=== PATIENT | female | born 1985 | race Caucasian/White ===

== ENCOUNTER → 2016-08-24 | Outpatient (CLI) | payer BC ==
[~2016-08-24] MED LIST: LOPE2CAP PO; MAG355OR15 PO; ONDA4TAB35 PO
== END | disposition home or self-care (01) ==
LOC: LAB 13:53
PROVIDERS: ATTEND Obstetrics & Gynecology
DX: Z32.00 Encounter for pregnancy test, result unknown (principal)

== ENCOUNTER → 2016-10-18 | Outpatient (CLI) | payer BC | END | disposition home or self-care (01) | LOC: LAB 11:19 | PROVIDERS: ATTEND Obstetrics & Gynecology | DX: O24.419 Gestational diabetes mellitus in pregnancy, unspecified control (principal); Z3A.00 Weeks of gestation of pregnancy not specified ==

== ENCOUNTER → 2016-10-19 | Outpatient (CLI) | payer BC ==
[2016-10-19 10:37] LABS: BASOPHILS % 0.3 % (0.0-2.0); EOSINOPHILS # 0.2 10^3/ul (0.0-0.5); EOSINOPHILS % 2.6 % (0.0-7.0); HEMATOCRIT 30.9 % (37.0-47.0); LYMPHOCYTES # 1.1 10^3/ul (0.8-2.9); LYMPHOCYTES % 16.3 % (15.0-51.0); MEAN CORPUSCULAR HEMOGLOBIN 32.3 pg (29.0-33.0); MEAN CORPUSCULAR HGB CONC 35.6 g/dl (32.0-37.0); MEAN CORPUSCULAR VOLUME 90.6 fl (82.0-101.0); MEAN PLATELET VOLUME 8.4 fl (7.4-10.4); MONOCYTE # 0.4 10^3/ul (0.3-0.9); MONOCYTES % 5.2 % (0.0-11.0); NEUTROPHIL # 5.1 10^3/ul (1.6-7.5); NEUTROPHILS % 74.6 % (39.0-77.0); PLATELET COUNT 161 10^3/UL (140-415); RED BLOOD COUNT 3.41 10^6/ul (4.20-5.40); RED CELL DISTRIBUTION WIDTH 13.2 % (11.5-14.5); WHITE BLOOD COUNT 6.9 10^3/ul (4.8-10.8)
== END | disposition home or self-care (01) ==
LOC: LAB 07:50
PROVIDERS: ATTEND Obstetrics & Gynecology
DX: O24.419 Gestational diabetes mellitus in pregnancy, unspecified control (principal); Z3A.00 Weeks of gestation of pregnancy not specified
CPT/HCPCS: 82950; 85025

== ENCOUNTER → 2016-10-26 | Outpatient (CLI) | payer BC | END | disposition home or self-care (01) | LOC: LAB 07:10 | PROVIDERS: ATTEND Obstetrics & Gynecology | DX: O24.410 Gestational diabetes mellitus in pregnancy, diet controlled (principal) | CPT/HCPCS: 82951 ==

== ENCOUNTER 2016-12-29 18:27 | Outpatient (CLI) | payer BC ==
[~2016-12-29] VITALS: Ht 167.6 cm; Wt 81.9 kg
[2016-12-29] MEDS ORDERED: DOCO200C5 PO (18:39)
[2016-12-29] MEDS ORDERED: ALBU18HF INHALATION (18:40)
[2016-12-29] MEDS ORDERED: QVAR INH (18:42)
[2016-12-29] MEDS ORDERED: ACET500C5 PO (18:42)
[2016-12-29] MEDS ORDERED: RANI150T9 PO (18:43)
[2016-12-29 18:44] VITALS: BP 132/78; PULSE 97; RESP 18
--- NOTE | 2016-12-29 19:42 | RADRPT ---
PROCEDURE: US OB biophysical profile. CLINICAL INDICATION: decreased movements, spotting TECHNIQUE: Multiple sonographic images of the pelvis were obtained. The images were reviewed on a PACS workstation. COMPARISON: No prior studies are available for comparison. FINDINGS: There is a single viable intrauterine gestation. Cardiac activity is present with 146 beats per min [place]. There is a breech presentation. The placenta is fundal. There is no evidence of placental abruption. There is a normal amount of amniotic fluid with an [place] = 9.2 cm. Biophysical profile: movement 2/2 tone 2/2. breathing 2/2 [place] 2/2 Total 10/30 RPTAT: AA . IMPRESSION: Normal biophysical profile. . .Ruben Kitchen MD, Date Time Electronically viewed and signed by .Ruben Kitchen MD, MD on 12/29/2016 19:41 .S/
--- NOTE | 2016-12-29 20:27 | TRIAGE ---
OB Triage Datetime Report Generated by CPN: 12/29/2016 20:27 Datetime: 12/29/2016 19:55 Labor Evaluation Frequency: NONE Monitor Mode: External Resting Tone [place]: Relaxed Heart Rate FHR Baseline Rate: 135 Monitor Mode: External US Variability: Moderate 6-25 bpm Accelerations: 15X15 Decelerations: None Category: Category I Datetime: 12/29/2016 19:31 Pain Assessment Pain Scale: 0 Pain Presence: None/Denies Pain Type: N/A Pain Goal: 4 Datetime: 12/29/2016 19:16 Labor Evaluation Frequency: 0 Monitor Mode: External Pattern: Normal: <= 5 Contractions in 10 Minutes Resting Tone [place]: Relaxed Heart Rate FHR Baseline Rate: 135 Monitor Mode: External US FHR Baseline Changes: No Baseline Change Variability: Moderate 6-25 bpm Accelerations: 15X15 Decelerations: None Datetime: 12/29/2016 19:01 Vaginal Exam Dilatation (cms): 0.0 Effacement (%): 0 Station: -3 Exam By: CK Datetime: 12/29/2016 18:59 Nitrazine: Negative Datetime: 12/29/2016 18:46 Time of Arrival: 12/29/2016 18:20 EGA: 38.4 Arrived By: Ambulatory Arrived From: Home Chief Complaint: AT 1730, HAD 3 CTX Q2MIN, THEN SMALL AMOUNT OF BROWN, BLOODY DISCHARGE (SOAKED ON E PANTY LINER) Movement: Present Contractions: Denies/Absent Rupture of Membranes: Denies Vaginal Bleeding: Small Vaginal Discharge: Present Recent Sexual Intercouse: Denies Abdominal Trauma: Not Applicable Patient Complaints: Contractions Time Provider Notified: 12/29/2016 18:50 Provider Notified: DR. DAN Initial Plan: EFM x2, SVE, NITRAZINE, ROM+, BPP Datetime: 12/29/2016 18:28 Stage of : OB Triage
--- NOTE | 2016-12-30 07:03 | QN ---
Documentation Comment iup 38 weeks with discharge vss exam wnl nst reactdive a/p iup 38 weeks false labor dc dana point WAI DEMARCO MD Dec 30, 2016 07:03
== END 2016-12-29 20:05 | disposition home or self-care (01) ==
LOC: OBT 18:27 → L-D 18:28 → OBT 20:05
PROVIDERS: ATTEND Obstetrics & Gynecology
DX: O47.1 False labor at or after 37 completed weeks of gestation (principal); Z3A.38 38 weeks gestation of pregnancy
CPT/HCPCS: 76818; 84112

== ENCOUNTER 2017-01-01 10:13 | Inpatient (IN) | payer BC ==
[~2017-01-01] VITALS: Ht 167.6 cm; Wt 80.0 kg
[~2017-01-01 10:13] MED LIST changes: +ACET500C5 PO; +ALBU18HF INHALATION; +DOCO200C5 PO; -LOPE2CAP PO; -MAG355OR15 PO; -ONDA4TAB35 PO; +QVAR INH; +RANI150T9 PO
[2017-01-01] MEDS ORDERED: LACTATED RINGER'S 1,000 ML IV SCH (10:19)
[2017-01-01 10:25] VITALS: Ht 167.6 cm; Wt 80.0 kg
[2017-01-01] MEDS ORDERED: METHYLERGONOVINE 0.2 MG INJ IM PRN ×2 (10:30→14:00)
[2017-01-01] MEDS ORDERED: OXYTOCIN 30 UNITS/LR 500 ML IV PRN ×2 (10:30→14:00)
[2017-01-01] MEDS ORDERED: MISOPROSTOL 200 MCG TAB PR PRN ×2 (10:30→14:00)
[2017-01-01] MEDS ORDERED: OXYTOCIN 30 UNITS/LR 500 ML IV SCH (10:30)
[2017-01-01] MEDS ORDERED: CEFAZOLIN 2 GM/50 ML (PMX) 50 ML IV SCH (10:30)
[2017-01-01] MEDS ORDERED: CARBOPROST 250 MCG INJ IM PRN ×2 (10:30→14:00)
--- NOTE | 2017-01-01 11:20 | RADRPT ---
PROCEDURE: Limited OB ultrasound CLINICAL INDICATION: position TECHNIQUE: Sonographic evaluation to assess the position was performed. Transabdominal imag ing of the gravid uterus was performed. COMPARISON: OB ultrasound dated 12/29/2016 FINDINGS: There is a single live intrauterine with a heart rate of 143 bpm. position is breech. The placenta is posterior. IMPRESSION: Breech presentation. RPTAT: HH .Alisha Ch MD, MD Date Time Electronically viewed and signed by .Alisha Ch MD, on 01/01/2017 11:19 .G/
[2017-01-01 11:25] LABS: BASOPHILS % 0.2 % (0.0-2.0); EOSINOPHILS % 0.4 % (0.0-7.0); HEMATOCRIT 32.9 % (37.0-47.0); HEMOGLOBIN 11.6 g/dl (12.0-16.0); LYMPHOCYTES # 1.4 10^3/ul (0.8-2.9); LYMPHOCYTES % 15.2 % (15.0-51.0); MEAN CORPUSCULAR HEMOGLOBIN 32.4 pg (29.0-33.0); MEAN CORPUSCULAR HGB CONC 35.3 g/dl (32.0-37.0); MEAN CORPUSCULAR VOLUME 91.9 fl (82.0-101.0); MEAN PLATELET VOLUME 9.3 fl (7.4-10.4); MONOCYTE # 0.6 10^3/ul (0.3-0.9); MONOCYTES % 6.8 % (0.0-11.0); NEUTROPHIL # 6.9 10^3/ul (1.6-7.5); NEUTROPHILS % 75.5 % (39.0-77.0); PLATELET COUNT 172 10^3/UL (140-415); RED BLOOD COUNT 3.58 10^6/ul (4.20-5.40); RED CELL DISTRIBUTION WIDTH 13.7 % (11.5-14.5); WHITE BLOOD COUNT 9.2 10^3/ul (4.8-10.8)
[2017-01-01 11:42] LABS: INR 0.94; PROTIME 12.6 Sec (12.2-14.2)
[2017-01-01 11:43] LABS: PARTIAL THROMBOPLASTIN TIME 29.1 Sec (25.0-35.0)
[2017-01-01] MEDS ORDERED: PHENYLephrine (100 MCG/ML) 5ML SYG ONE ×2 (11:58→13:04)
[2017-01-01] MEDS ORDERED: ONDANSETRON 4 MG INJ ONE (11:58)
[2017-01-01] MEDS ORDERED: morphine SULFATE/PF (10 MG/10 ML) INJ ONE (11:58)
[2017-01-01] MEDS ORDERED: CITRIC ACID/NA CITRATE 30 ML CUP ONE (11:58)
[2017-01-01] MEDS ORDERED: FENTAnyl 50 MCG/ML VIAL ONE (11:58)
[2017-01-01] MEDS ORDERED: OXYTOCIN 10 UNIT INJ ONE (11:59)
[2017-01-01] MEDS ORDERED: METOCLOPRAMIDE 10 MG INJ ONE (11:59)
[2017-01-01] MEDS ORDERED: DEXAMETHASONE 4 MG/ML 1 ML INJ ONE (12:38)
[2017-01-01] MEDS ORDERED: ALBUTEROL 0.083% (NEB) 2.5 MG/3 ML AMP HHN PRN (13:00)
[2017-01-01] MEDS ORDERED: HYDROmorphONE (0.2 MG/ML) 10ML SYG IV PRN ×3 (13:00)
[2017-01-01] MEDS ORDERED: hydrALAzine 20 MG INJ IV PRN (13:00)
[2017-01-01] MEDS ORDERED: EPHEDrine SULFATE 50 MG/5 ML SYG IV PRN (13:00)
[2017-01-01] MEDS ORDERED: morphine 2 MG INJ IV PRN (13:00)
[2017-01-01] MEDS ORDERED: NALBUPHINE HCL (10 MG/1 ML) INJ IV PRN (13:00)
[2017-01-01] MEDS ORDERED: NALOXONE (0.4 MG/ML) INJ IV PRN (13:00)
[2017-01-01] MEDS ORDERED: OXYCODONE/ACETAMINOPHEN (5/325) TAB PO PRN ×2 (13:00)
[2017-01-01] MEDS ORDERED: MEPERIDINE 25 MG INJ IV PRN (13:00)
[2017-01-01] MEDS ORDERED: ONDANSETRON 4 MG INJ IV PRN ×2 (13:00)
[2017-01-01] MEDS ORDERED: FENTAnyl 50 MCG/ML VIAL IV PRN ×3 (13:00)
[2017-01-01] MEDS ORDERED: ZOLPIDEM 5 MG TAB PO PRN (13:00)
[2017-01-01] MEDS ORDERED: LABETALOL HCL 20MG INJ IV PRN (13:00)
[2017-01-01] MEDS ORDERED: IPRATROPIUM (NEB) 0.5 MG/2.5 ML AMP HHN PRN (13:00)
[2017-01-01] MEDS ORDERED: DIPHENHYDRAMINE 50 MG INJ IV PRN ×2 (13:00)
[2017-01-01] MEDS ORDERED: morphine 4 MG/ML VIAL IV PRN (13:00)
[2017-01-01] MEDS ORDERED: TRIMETHOBENZAMIDE 100 MG/ML VIAL IM PRN ×2 (13:00)
--- NOTE | 2017-01-01 13:48 | OPR ---
Operative Report Planned Procedure Procedure date Jan 01, 2017 Procedure(s) Primary section. Performed by see signature line Assisting provider: RICHARD DUMONT MD Anesthesiologist: Norm Bolanos M.D. Pre-procedure diagnosis IUP at 39 weeks. Breech. Anesthesia Type: spinal Procedure Description Under satisfactory spinal anesthesia, the patient was prepped and draped and placed in a supine position, tilted to the left. Pfannenstiel incision was made , carried through the subcutaneous tissue. Bleeders brought under control with electrocautery. Fascia incised to the length of the incision. Rectus muscles from the fascia, divided midline. Peritoneum exposed, entered through a transverse incision. Transverse incision was made in the lower segment of the uterus. Amniotic sac ruptured. Clear amniotic fluid noted. Buttocks were delivered first until the legs could be delivered. The baby was then delivered to the shoulders and the arms were delivered. The head was delivered with a finger in the baby's mouth and with fundal pressure to keep the head flexed. The mouth and nares were bulb suctioned. The cord was doubly clamped and cut. The baby was brought to the warmer and the team for immediate attention. The placenta was delivered manually intact. Uterine cavity was cleaned with wet sponge and drainage established. Uterus closed in 2 layers using #1 chromic in continuous fashion. Peritoneal cavity irrigated with warm saline. Sponge, needle and instrument count reported to be correct. Abdominal peritoneum closed with 2-0 Chromic continuously. Rectus muscle approximated with the same suture. Fascia closed with 0-Vicryl. The subcutaneous tissue was irrigated and closed with 2-0 Chromic and skin was closed with 3-0 Monocryl in a subcuticular stitch. Steristrips with Mastosol were placed. Estimated blood loss 600 mL. Urine was clear. Post-Procedure Post-procedure diagnosis Same. Findings: Delivered a viable baby girl that weighs 3240 grams or 7# 2 oz and Apgars of 9/ 9. Estimated blood loss: other (600 ml) Specimen(s): no Grafts/Implants: no Complication(s): no Pt Condition post procedure: stable Disposition: PACU Physician Certification I, the undersigned physician, hereby certify that I have discussed the procedure described in this consent form with this patient (or the patient's legal passenger relations representative), including: * The risk and benefits of the procedure; * Any adverse reactions that may reasonably be expected to occur; * Any alternative efficacious methods of treatment which may be medically viable ; * The potential problems that may occur during recuperation; * Potential for blood transfusion and associated risks/benefits; and * Any research or economic interest I may have regarding this treatment. I further certify that the patient/legally responsible person was encouraged to ask question and that all questions were answered. SHAUN DAN MD Jan 01, 2017 13:48
[2017-01-01] MEDS ORDERED: PROVENTIL HFA 6.7GM INHALER INH PRN (14:00)
[2017-01-01] MEDS ORDERED: HYDROCODONE/APAP (5/325) TAB PO PRN (14:00)
[2017-01-01] MEDS: IBUPROFEN 800 MG TAB PO SCH ×2 (14:00→22:00)
[2017-01-01] MEDS ORDERED: ALBUTEROL 18 GM INHALER INH PRN (14:11)
[2017-01-01] MEDS: OXYTOCIN 30 UNITS/LR 500 ML IV SCH ×3 (15:43→23:30)
[2017-01-01 16:30] VITALS: BP 120/76; PULSE 96; RESP 18
[2017-01-01] MEDS: KETOROLAC 30 MG INJ IV PRN (17:11)
[2017-01-01 19:40] VITALS: BP 117/73; PULSE 88; RESP 18
[2017-01-01] MEDS: RANITIDINE 150 MG TAB PO SCH (21:00)
[2017-01-01] MEDS ORDERED: INFLUENZA VIRUS VACCINE 0.5 ML SYG IM* ONE (21:00)
--- NOTE | 2017-01-01 21:40 | HP ---
Date/Time of Note Date/Time of Note DATE: 01/01/17 TIME: 21:37 OB - History Hx of Present Free Text/Dictation 31 y.o. G1 with an IUP at 39 weeks admitted today for a primary due to breech positioning of the fetus. Last Menstrual Period: Apr 03, 2016 Estimated Due Date: Jan 08, 2017 : 1 Para: 0 Care: Good Care Ultrasounds: Normal mid trimester US Obstetrical Complications: Other (BREECH) Medical Complications: Respiratory (ASTHMA) Past Family/Social History * Past Medical, Surgical, Family and Obstetric Histories reviewed from chart. Blood Type: O+ Rubella: immune RPR/VDRL: Negative GBS Status: Negative HBsAG: Negative OB Admission Exam Vital Signs Vital Signs Vital Signs Date Time Temp Pulse Resp B/P Pulse Ox O2 Delivery O2 Flow Rate FiO2 01/01/17 19:40 98.0 88 18 117/73 98 Room Air Physical Exam HEENT: WNL Heart: Rhythm Normal Lungs: Clear Abdomen: WNL Extremities: Edema (1+) Cervical Dilatation: None Effacement: 0% Station: -3 Membranes: Intact Last 72 hours Lab Results CBC & BMP 01/01/17 11:01 OB Assessment/Plan Reason for admission: section Other Assessment: BREECH. ASTHMA. Plan: Section SHAUN DAN MD Jan 01, 2017 21:40
[2017-01-01] MEDS: LACTATED RINGER'S 1,000 ML IV SCH ×2 (21:48→22:36)
[2017-01-02] VITALS: BP 117/72; PULSE 82; RESP 18
[2017-01-02] MEDS: KETOROLAC 30 MG INJ IV PRN ×2 (02:21→09:12)
[2017-01-02] MEDS: OXYTOCIN 30 UNITS/LR 500 ML IV SCH (03:30)
[2017-01-02 04:20] VITALS: BP 105/67; PULSE 74; RESP 18
[2017-01-02] MEDS: IBUPROFEN 800 MG TAB PO SCH ×3 (06:00→21:41)
[2017-01-02] MEDS: LACTATED RINGER'S 1,000 ML IV SCH (06:02)
[2017-01-02 08:00] VITALS: BP 99/59; PULSE 86; RESP 17
[2017-01-02] MEDS ORDERED: INFLUENZA VIRUS VACCINE 0.5 ML SYG IM* ONE (09:00)
[2017-01-02] MEDS: SENNA/DOCUSATE NA (8.6MG/50MG) TAB PO PRN (09:11)
[2017-01-02 10:34] LABS: BASOPHILS % 0.2 % (0.0-2.0); EOSINOPHILS # 0.1 10^3/ul (0.0-0.5); EOSINOPHILS % 0.4 % (0.0-7.0); HEMATOCRIT 25.1 % (37.0-47.0); HEMOGLOBIN 8.3 g/dl (12.0-16.0); LYMPHOCYTES # 1.4 10^3/ul (0.8-2.9); LYMPHOCYTES % 9.1 % (15.0-51.0); MEAN CORPUSCULAR HEMOGLOBIN 31.1 pg (29.0-33.0); MEAN CORPUSCULAR HGB CONC 33.1 g/dl (32.0-37.0); MEAN PLATELET VOLUME 9.1 fl (7.4-10.4); MONOCYTE # 1.4 10^3/ul (0.3-0.9); MONOCYTES % 8.8 % (0.0-11.0); NEUTROPHIL # 12.3 10^3/ul (1.6-7.5); NEUTROPHILS % 80.3 % (39.0-77.0); PLATELET COUNT 140 10^3/UL (140-415); RED BLOOD COUNT 2.67 10^6/ul (4.20-5.40); RED CELL DISTRIBUTION WIDTH 14.2 % (11.5-14.5); WHITE BLOOD COUNT 15.3 10^3/ul (4.8-10.8)
[2017-01-02 12:07] VITALS: BP 120/75; PULSE 97; RESP 18
[2017-01-02] MEDS: HYDROCODONE/APAP (5/325) TAB PO PRN ×2 (12:07→20:12)
[2017-01-02 16:10] VITALS: BP 106/56; PULSE 94; RESP 16
[2017-01-02] MEDS ORDERED: ONDANSETRON 4 MG INJ IV STA (17:04)
[2017-01-02] MEDS ORDERED: CITRIC ACID/NA CITRATE 30 ML CUP PO ONE (17:30)
--- NOTE | 2017-01-02 17:31 | QN ---
Documentation Comment Progress Note POD #1 Pt doing well. without a problem. Good pain management. Had an issue with voiding initially after the catheter was removed but it resolved on its own. On regular diet. T=97.7 BP 120/75 Dressing clean, dry and intact. Lochia minimal. Ext 1+ edema WBC 15.3 Hgb 8.3 Plts 195K P: Continue care. SHAUN DAN MD Jan 02, 2017 17:31
[2017-01-02 19:40] VITALS: BP 115/55; PULSE 91; RESP 18
[2017-01-02] MEDS: RANITIDINE 150 MG TAB PO SCH (21:00)
[2017-01-03] MEDS: HYDROCODONE/APAP (5/325) TAB PO PRN ×3 (03:26→16:23)
[2017-01-03 03:30] VITALS: BP 108/60; PULSE 77; RESP 18
[2017-01-03] MEDS: IBUPROFEN 800 MG TAB PO SCH ×3 (06:14→21:44)
[2017-01-03 07:30] VITALS: BP 102/56; PULSE 79; RESP 18
[2017-01-03] MEDS: SENNA/DOCUSATE NA (8.6MG/50MG) TAB PO PRN (08:13)
[2017-01-03 16:00] VITALS: BP 105/65; PULSE 60; RESP 18
[2017-01-03 20:15] VITALS: BP 101/64; PULSE 76; RESP 18
--- NOTE | 2017-01-03 20:59 | PD.PPDC ---
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
[2017-01-03] MEDS ORDERED: HYDR-3498 PO (21:00)
[2017-01-03] MEDS: RANITIDINE 150 MG TAB PO SCH (21:00)
[2017-01-03] MEDS ORDERED: IBUP800T25 PO (21:00)
--- NOTE | 2017-01-03 21:03 | DS ---
Date/Time of Note Date/Time of Note DATE: 01/03/17 TIME: 21:01 Obstetrical Discharge Record Final Diagnosis Final Diagnosis: Term delivered Other Final Diagnosis Asthma Section Section: Primary Primary Indication Breech Complications Other (Breech) Augmentation: No Induction: No Condition on Discharge Physical Assessment Last Vitals: T=98.6 BP 105/65 Voiding: Yes Bowel Movement: No Breast: Soft, non-tender Fundus: Firm Abdomen and Incision: Clean, dry and intact with steristrips present. Calf Tenderness: No Patient Condition: Good SHAUN DAN MD Jan 03, 2017 21:03
[2017-01-04 04:00] VITALS: BP 97/55; PULSE 77
[2017-01-04] MEDS: IBUPROFEN 800 MG TAB PO SCH ×2 (05:43→14:48)
[2017-01-04 07:40] VITALS: BP 111/78; PULSE 79
[2017-01-04] MEDS ORDERED: DIPHTH/TET/ACEL PERTUSS (ADULT) 0.5 ML VIAL IM* ONE (09:00)
[2017-01-04] MEDS: SENNA/DOCUSATE NA (8.6MG/50MG) TAB PO PRN ×2 (09:07→09:16)
== END 2017-01-04 15:40 | disposition home or self-care (01) | DRG 766 ==
LOC: L-D 10:13 → PP1 16:38
PROVIDERS: ADMIT Obstetrics & Gynecology; ATTEND Obstetrics & Gynecology
PROC: 10D00Z1 Extraction of Products of Conception, Low, Open Approach (ICD-10-PCS; principal; 2017-01-01 12:30)
DX: O32.1XX0 Maternal care for breech presentation, not applicable or unspecified (principal); Z37.0 Single live birth; Z3A.39 39 weeks gestation of pregnancy
CPT/HCPCS: 76815; 85025; 85610; 85730; 86592; 86850; 86900; 86901; 87340; 90686; 90715; 99464; J1100; J1200; J1885; J2274; J2370; J2405; J2590; J2765; J3010; J7120

== ENCOUNTER 2017-07-16 06:50 | Emergency (ER) | END 2017-07-16 08:23 | disposition home or self-care (01) ==

== ENCOUNTER 2018-03-18 10:23 | Inpatient (IN) | payer BC, OTHER ==
[~2018-03-18] VITALS: Ht 170.2 cm; Wt 80.2 kg
[~2018-03-18 10:23] MED LIST changes: +HYDR-3601 PO; +IBUP-1544 PO; +IBUP800T48 PO; +METH750T93 PO; -RANI150T9 PO
[2018-03-18 10:34] VITALS: BP 105/69; PULSE 75; RESP 18; Ht 170.2 cm; Wt 80.2 kg
--- NOTE | 2018-03-18 12:16 | TRIAGE ---
OB Triage Datetime Report Generated by CPN: 03/18/2018 12:15 Datetime: 03/18/2018 11:30 Stage of : OB Triage Maternal Assessment Level of Consciousness: Fully Conscious Labor Evaluation Frequency: NONE Monitor Mode: External Resting Tone [place]: Relaxed Heart Rate FHR Baseline Rate: 135 Monitor Mode: External US Variability: Moderate 6-25 bpm Accelerations: 15X15 Decelerations: None Category: Category I Pain Assessment Pain Scale: 0 Pain Goal: 3 Vaginal Exam Membrane Status: Intact Vaginal Bleeding: Scant Datetime: 03/18/2018 10:28 Assessment Type: Triage Maternal Assessment Level of Consciousness: Fully Conscious DTR's/Clonus: DTRs 2+; No Clonus Headache: Denies Blurred Vision: No Respiratory Effort: Unlabored; Regular Rhythm; Equal Expansion Breath Sounds, Left: Clear and Equal Breath Sounds, Right: Clear and Equal Nausea/Vomiting: Denies RUQ Epigastric Pain: Denies Lower Extremities Edema: None Degree: None Upper Extremities Edema: None Degree: None Facial Edema: None Fall Risk Assessment History of Falling: (0) No Secondary Diagnosis: (0) No Ambulatory Aid: (0) Bedrest/Nurse Assist IV Therapy: (0) No Gait: (0) Normal/Bedrest/Immobile Mental Status: (0) Oriented to Own Ability Fall Score: 0 Fall Risk Score Definition: No Risk: No action required Datetime: 03/18/2018 10:26 Time of Arrival: 03/18/2018 10:15 EGA: 25.0 Arrived By: Ambulatory Arrived From: Home Chief Complaint: PT HERE C/O SPOTTING X 1 OCCURENCE Movement: Present Contractions: Denies/Absent Rupture of Membranes: Denies Vaginal Bleeding: None Vaginal Discharge: Present Recent Sexual Intercouse: Denies Abdominal Trauma: Not Applicable Patient Complaints: None Time Provider Notified: 03/18/2018 10:50 Provider Notified: STEVE Initial Plan: FFN/CVL/UA/EFW/CBC/T_S/ Datetime: 03/18/2018 10:24 Monitor Mode: External Monitor Mode: External US
--- NOTE | 2018-03-18 12:30 | HP ---
Date/Time of Note Date/Time of Note DATE: 03/18/18 TIME: 12:29 OB - History Hx of Present Free Text/Dictation 25+wks GA with vaginal bleeding : 2 Para: 1 Care: Good Care Ultrasounds: Normal mid trimester US Obstetrical Complications: None Medical Complications: None Past Family/Social History * Past Medical, Surgical, Family and Obstetric Histories reviewed from chart. OB Admission Exam Vital Signs Vital Signs Vital Signs Date Temp Pulse Resp B/P (MAP) Pulse Ox O2 O2 Flow FiO2 Time Delivery Rate 03/18/18 98.0 75 18 105/69 Room Air 10:34 (81) Physical Exam Abdomen: WNL Membranes: Intact Heart Rate: 140's Accelerations: Accelerations Present Decelerations: No Decelerations Varibility: Moderate Contractions on Admission: None Last 72 hours Lab Results CBC & BMP 03/18/18 11:29 OB Assessment/Plan Reason for admission: observation Plan: Expectant Management Other plan: Continuous monitoring Mg Steroids NHAN WILSON M.D. Mar 18, 2018 12:30
[2018-03-18] MEDS ORDERED: ACETAMINOPHEN 325 MG TAB PO PRN (13:30)
[2018-03-18] MEDS ORDERED: MAGNESIUM SULFATE 4 GM/100 ML 100 ML IV ONE (13:30)
[2018-03-18] MEDS: BETAMET NA PHOS/AC(6 MG/ML) 2 ML INJ SYG IM SCH (13:47)
[2018-03-18] MEDS: LACTATED RINGER'S 1,000 ML IV SCH ×2 (13:54→21:16)
[2018-03-18] MEDS: MAGNESIUM SULFATE 20 GM/500 ML 500 ML IV SCH (14:55)
[2018-03-18] MEDS ORDERED: ALBUTEROL HFA 8 GM INHALER INH PRN (16:00)
[2018-03-19] MEDS: MAGNESIUM SULFATE 20 GM/500 ML 500 ML IV SCH (00:25)
[2018-03-19] MEDS ORDERED: ACETAMINOPHEN 325 MG TAB PO PRN (00:30)
[2018-03-19] MEDS ORDERED: PRENATAL VITAMIN ONE (00:39)
[2018-03-19] MEDS: LACTATED RINGER'S 1,000 ML IV SCH (08:40)
[2018-03-19] MEDS ORDERED: PRENATAL VITAMIN PO SCH (09:00)
[2018-03-19] MEDS: BETAMET NA PHOS/AC(6 MG/ML) 2 ML INJ SYG IM SCH (13:40)
--- NOTE | 2018-03-19 14:52 | DS ---
Date/Time of Note Date/Time of Note DATE: 03/19/18 TIME: 14:49 Obstetrical Discharge Record Final Diagnosis Final Diagnosis: not delivered Other Final Diagnosis 33 years old 2 para 1001 with single intrauterine at 25 weeks and 3 days was admitted yesterday for second trimester vaginal bleeding. She has received magnesium sulfate for 24 hours. She received 2 doses of betamethas one. Currently she is doing well. She has not no uterine contractions. heart rate is category 1. Biophysical profile probe performed which is 8 out of 8 with normal amniotic fluid. 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 Sign and symptom of labor, preeclampsia and kick count discussed with patient in detail. She expressed understanding all of her questions answered. She discharged home in stable condition with follow-up with her primary OB. I strongly recommend come back to triage with any concerns. Condition on Discharge Physical Assessment Last Vitals: Vital Signs Date Temp Pulse Resp B/P (MAP) Pulse Ox O2 O2 Flow FiO2 Time Delivery Rate 03/18/18 98.0 75 18 105/69 Room Air 10:34 (81) Voiding: Yes Bowel Movement: Yes Calf Tenderness: No Patient Condition: Stable TERRY FIORE Mar 19, 2018 14:52
== END 2018-03-19 14:00 | disposition home or self-care (01) | DRG 833 ==
LOC: OBT 10:23 → L-D 10:24 → OBT 12:44
PROVIDERS: ADMIT Obstetrics & Gynecology; ATTEND Obstetrics & Gynecology
DX: O46.92 Antepartum hemorrhage, unspecified, second trimester (principal); Z3A.25 25 weeks gestation of pregnancy
CPT/HCPCS: 76815; 76817; 81001; 82731; 83735; 85025; 86850; 86900; 86901; G0463; J0702; J3475; J7120